=== PATIENT | female | born 1965 | race Caucasian/White ===

== ENCOUNTER → 2017-11-01 | Outpatient (CLI) | payer BC ==
--- NOTE | 2017-11-02 15:23 | RADIOLOGY IMAGING REPORT ---
FACILITY: [facility] [place] PATIENT NAME: MADAY STEPHENS : [id number] MR: [id number] V: [id number] EXAM DATE: [id number] ORDERING PHYSICIAN: BLESSING RAM TECHNOLOGIST: Anna Mandel PROCEDURE:BILATERAL DIGITAL SCREENING MAMMOGRAM WITH CAD ASSISTED INTERPRETATION & 3D TOMOSYNTHESIS COMPARISON:Prior mammograms 10/28/2016. INDICATIONS:SCREENING FINDINGS: Breast tissue demonstrates scattered fibroglandular density. There is no suspicious mass, calcification, or architectural distortion. There is a focal asymmetry in the lateral aspect of the Left breast, seen only on the CC view posterior 1/3 for depth this is unchanged from prior mammogram. DIAGNOSTIC CATEGORY 2--BENIGN FINDING. RECOMMENDATIONS: ROUTINE MAMMOGRAM AND CLINICAL EVALUATION. IMPRESSION: BIRADS 2: Benign finding. No mammographic evidence for malignancy. Dictated by: Varun Loo M.D. on 11/02/2017 at 10:12 Transcribed by: KRYS on 11/02/2017 at 10:30 Approved by: Varun Loo M.D. on 11/02/2017 at 15:22 [facility]
== END ==
LOC: MAMO 03:12
PROVIDERS: ATTEND Obstetrics & Gynecology
DX: Z12.31 Encounter for screening mammogram for malignant neoplasm of breast (principal)
CPT/HCPCS: 77063; 77067

== ENCOUNTER 2017-11-30 01:28 | Day surgery (SDC) | payer BC ==
[~2017-11-30] VITALS: Ht 175.3 cm; Wt 88.9 kg
[2017-11-30 06:00] VITALS: BP 124/79
[2017-11-30] MEDS ORDERED: LIDOCAINE/SOD BICARB 8.4% SYR ID ONE (06:30)
[2017-11-30] MEDS ORDERED: NORMOSOL R SOLN(*) 1000 ML BAG 1,000 ML IV PRN (06:30)
[2017-11-30] MEDS ORDERED: PROPOFOL EMUL(*) 10MG/ML 20 ML 40 ML ONE (06:45)
[2017-11-30] MEDS ORDERED: PROPOFOL EMUL(*) 10MG/ML 20 ML 20 ML ONE (07:58)
[2017-11-30 08:13] VITALS: BP 93/60
[2017-11-30 08:15] VITALS: BP 97/67
--- NOTE | 2017-11-30 08:17 | Short(Outpt) Discharge Summary ---
Discharge Summary Reason for Hosp/Final Diag: (1) Colon cancer screening Status: Chronic Hospital Course & Plan: Colonoscopy with polypectomy x2 completed without problems. Departure Discharge to: Home, Self Care Discharge Instructions Home Meds No Active Prescriptions or Reported Meds Diet: Regular Activity: As Tolerated Special Instructions: Your colonoscopy was completed without problems and your prep was excellent (Good Job!!). I removed 2 tiny polyps from your colon and rectum. My office will call you in the next week or so and let you know what the polyps are and when your next colonoscopy should be (either 5 or 10 years) depending on the pathology results. BAKARI SON MD Nov 30, 2017 08:17
[2017-11-30 08:30] VITALS: BP 117/95
[2017-11-30 08:58] VITALS: BP 118/76
[2017-11-30 09:00] VITALS: BP 122/89
== END 2017-11-30 09:10 | disposition home or self-care (01) ==
LOC: OR 01:28
PROVIDERS: ATTEND Surgery
DX: Z12.11 Encounter for screening for malignant neoplasm of colon (principal); K63.5 Polyp of colon; K62.1 Rectal polyp
CPT/HCPCS: 00811; 45380; 45385; 88305; J2704